=== PATIENT | female | born 1970 | race Caucasian/White ===

== ENCOUNTER 2019-06-09 13:12 | Emergency (ER) | payer OTHER ==
[~2019-06-09] VITALS: Ht 172.7 cm; Wt 106.1 kg
[2019-06-09] MEDS ORDERED: SINGULAIR 10 MG10 M1 PO (13:31)
[2019-06-09] MEDS ORDERED: FLONASE 0.05%50 MCG NASAL (13:31)
[2019-06-09] MEDS ORDERED: WELLBUTRIN XL300 MG PO (13:31)
[2019-06-09] MEDS ORDERED: ZANTAC 150MG T150 MG PO (13:31)
[2019-06-09] MEDS ORDERED: BIOTIN1 MG PO (13:32)
[2019-06-09] MEDS ORDERED: VITAMIN D1000 UNI1 PO (13:32)
[2019-06-09] MEDS ORDERED: PROVIGIL 200 M200 MG PO (13:32)
[2019-06-09] MEDS ORDERED: NORCO 5-325 TA1 EAC1 PO (14:06)
[2019-06-09 15:15] VITALS: BP 138/78
== END 2019-06-09 15:16 | disposition home or self-care (01) ==
LOC: ER 13:12
DX: S01.511A Laceration without foreign body of lip, initial encounter (principal); S93.401A Sprain of unspecified ligament of right ankle, initial encounter; Z91.040 Latex allergy status; Z91.048 Other nonmedicinal substance allergy status; V89.2XXA Person injured in unspecified motor-vehicle accident, traffic, initial encounter; Y92.89 Other specified places as the place of occurrence of the external cause; Y93.89 Activity, other specified; Y99.8 Other external cause status

== ENCOUNTER 2020-08-19 13:30 | Emergency (ER) | payer OTHER ==
[~2020-08-19] VITALS: Ht 172.7 cm; Wt 108.9 kg
[~2020-08-19 13:30] MED LIST: BIOTIN1 MG PO; FLONASE 0.05%50 MCG NASAL; NORCO 5-325 TA1 EAC1 PO; PROVIGIL 200 M200 MG PO; SINGULAIR 10 MG10 M1 PO; VITAMIN D1000 UNI1 PO; WELLBUTRIN XL300 MG PO; ZANTAC 150MG T150 MG PO
[2020-08-19 16:39] LABS: ABSOLUTE NEUTROPHILS 3.1 thou/uL (1.4-8.2); ANION GAP 8 mmol/L (7-16); BASOPHILS 1.2 % (0.0-2.0); BUN 12 mg/dL (7-18); CALCIUM 8.5 mg/dL (8.5-10.1); CHLORIDE 101 mmol/L (98-107); CO2 28 mmol/L (21-32); EOSINOPHILS 0.8 % (0.0-3.0); GLUCOSE 99 mg/dL (74-106); HEMATOCRIT 43.4 % (37.0-47.0); HEMOGLOBIN 14.1 gm/dL (12.0-15.0); LYMPHOCYTES 27.2 % (24.0-44.0); MCH 28.6 pg (26.0-34.0); MCHC 32.4 g/dL (28.0-37.0); MCV 88.2 fL (80.0-100.0); MONOCYTES 10.3 % (1.0-8.0); PLATELET COUNT 197 thou/uL (150-400); POLYS 60.5 % (36.0-66.0); RBC 4.92 mil/uL (4.20-5.00); RDW 13.8 % (10.5-14.5); SODIUM 137 mmol/L (136-145); WBC 5.1 thou/uL (4.0-11.0)
[2020-08-19 16:53] LABS: ALBUMIN 3.8 g/dL (3.4-5.0); SGOT 32 U/L (15-37); SGPT 27 U/L (30-65); TOTAL BILIRUBIN 0.4 mg/dL (0.2-1.0); TROPONIN-I <0.06 ng/mL (<0.06)
[2020-08-19] MEDS ORDERED: ONDANSETRON HCL4 M2 PO (17:06)
[2020-08-19] MEDS ORDERED: PROMETH-CODEIN 65 ML PO (17:06)
[2020-08-19] MEDS ORDERED: PROAIR HFA8.5 GM INH (17:06)
--- NOTE | 2020-08-19 17:10 | EKG ---
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
[2020-08-19 17:58] VITALS: BP 136/81
== END 2020-08-19 17:59 | disposition home or self-care (01) ==
LOC: ER 13:30
PROVIDERS: Physician Assistant
DX: U07.1 COVID-19 (principal); Z91.040 Latex allergy status; Z79.899 Other long term (current) drug therapy